=== PATIENT | female | born 1960 | race Caucasian/White ===

== ENCOUNTER 2017-02-15 12:28 | Emergency (ER) | payer OTHER ==
[2017-02-15] MEDS ORDERED: NS 0.9% 1000 ML* 1,000 ML IV SCH (13:45)
--- NOTE | 2017-02-15 15:10 | RAD ---
Indication: Leg pain and fever. 2 views of the lower leg demonstrates soft tissue swelling. No fracture is identified. No abnormal erosions are noted. Ankle mortise is intact. IMPRESSION: No fracture is noted. No abnormal erosions are noted.
[2017-02-15] MEDS ORDERED: Clindamycin 600 MG IVPREMIX(* 600 MG/50 ML SDV IV ONE (15:38)
[2017-02-15] MEDS ORDERED: Ondansetron INJ* 2 MG/ML VIAL IV ONE (15:38)
--- NOTE | 2017-02-15 16:18 | RAD ---
Indication: Left leg edema. Duplex Doppler sonography of the deep venous system of the left lower extremity deep venous system was performed. Bilaterally the common femoral veins appear patent and compressible. Left proximal greater saphenous vein, proximal deep femoral vein, femoral vein, popliteal vein, posterior tibial veins and peroneal veins appear patent and compressible. IMPRESSION: NO EVIDENCE OF DEEP VENOUS THROMBOSIS IS IDENTIFIED.
[2017-02-15 16:34] LABS: Hematocrit 37 % (35-47); Hemoglobin 12.3 g/dl (12.0-16.0); Mean Corpuscular HGB Conc 33 g/dl (31-36); Mean Corpuscular Hemoglobin 29 pg (27-31); Mean Corpuscular Volume 86 fL (80-97); Mean Platelet Volume 8 um3 (7.4-10.4); Red Cell Distribution Width 13 % (10.5-15)
--- NOTE | 2017-02-15 16:36 | ED ---
Skin Complaint - HPI Summary HPI Summary: 56F presents with cellulitis of left leg. She states that she has been seen at twice for this. She states she was initially placed on PCN but the area of cellulitis continued to grow and she says that pus came out of it. She went back to and they added clindamycin. She states the clindamycin made her nausea and have epigastric pain so she stopped taking it. She states the cellulitis area has not grown. She denies any nausea or epigastric pain currently. She states that she felt febrile yesterday but never took her temperature. She denies any chest pain or SOB. She denies any calf pain while walking. She denies any family history of blood clots. She is a nonsmoker and denies any recent travel. - History of Current Complaint Chief Complaint: EDExtremityLower Time Seen by Provider: 02/15/17 15:17 Stated Complaint: POSS cellulitis/FEVER Pain Intensity: 3 - Allergy/Home Medications Allergies/Adverse Reactions: Allergies Allergy/AdvReac Type Severity Reaction Status Date / Time No Known Allergies Allergy Verified 04/11/16 19:08 PMH/Surg Hx/FS Hx/Imm Hx Endocrine/Hematology History: Denies: Hx Diabetes Cardiovascular History: Denies: Hx Congestive Heart Failure, Hx Hypertension - Cancer History Hx Chemotherapy: No Hx Radiation Therapy: No - Surgical History Surgery Procedure, Year, and Place: TUBAL 1984. hysterectomy Infectious Disease History: No Infectious Disease History: Denies: Traveled Outside the [place] in Last 30 Days - Family History Known Family History: Positive: Other - NONCONTIRBUTORY - Social History Alcohol Use: None Substance Use Type: Reports: Prescribed Smoking Status (MU): Never Smoked Tobacco Review of Systems Negative: Fever Negative: Chest Pain Negative: Shortness Of Breath Positive: Other - cellulitis of left leg All Other Systems Reviewed And Are Negative: Yes Physical Exam Triage Information Reviewed: Yes Vital Signs On Initial Exam: Initial Vitals Temp Pulse Resp BP Pulse Ox 97.5 F 77 18 122/70 98 02/15/17 12:30 02/15/17 12:30 02/15/17 12:30 02/15/17 12:30 02/15/17 12:30 Vital Signs Reviewed: Yes Appearance: Positive: Well-Appearing Skin: Positive: Other - 6cm by 4cm area of cellulitis on left medina and 2 cm and 3 cm area of cellulitis near ankle on left leg Head/Face: Positive: Normal Head/Face Inspection Eyes: Positive: Normal, Conjunctiva Clear Respiratory/Lung Sounds: Positive: Clear to Auscultation, Breath Sounds Present Cardiovascular: Positive: Normal, RRR Musculoskeletal: Positive: Strength/ROM Intact - of left leg, Other - good pulses. Negative: Massimo Sign Left, Edema Left Diagnostics - Vital Signs Vital Signs Temp Pulse Resp BP Pulse Ox 02/15/17 14:46 97.6 F 67 18 123/79 97 02/15/17 12:30 97.5 F 77 18 122/70 98 - Laboratory Result Diagrams: 02/15/17 16:17 02/15/17 16:17 Lab Statement: Any lab studies that have been ordered have been reviewed, and results considered in the medical decision making process. - Radiology leg Xray Interpretation: No Acute Changes Radiology Interpretation Completed By: Radiologist - Ultrasound No standard instances Ultrasound Interpretation: No Acute Changes - no DVT Ultrasound Interpretation Completed By: Radiologist Course/Dx - Course Course Of Treatment: 56F presents with cellulitis for a week. has been on PCN and clindamycin was added two days ago because was not getting better but states due to GI symptoms was unable to take more than two doses. states the area has not gotten any bigger but she thought she felt febrile. today is afebrile. got u/s no DVT. areas of cellulitis on left medina. labs okay: wbc and lactic normal. discussed with dr knott and due to not taking antibiotics did not really fail outpatient therapy yet. will change antibiotic to bactrim. told to return if develops fever or redness spread. patient understands and agrees with plan - Differential Diagnoses - Skin Complaint Differential Diagnoses: Abscess, Cellulitis, Systemic Illness - Diagnoses Provider Diagnoses: Cellulitis of left leg Discharge - Discharge Plan Condition: Good Disposition: HOME Prescriptions: Ondansetron ODT TAB* [Zofran 4 MG Odt TAB*] 4 mg PO Q6H PRN #15 tab.odt PRN Reason: Nausea Sulfamethox/Trimethoprim DS* [Bactrim DS 800/160 TAB*] 1 tab PO BID #20 tab Patient Education Materials: Cellulitis (ED) Referrals: Camryn Lala NP [Primary Care Provider] - Additional Instructions: Continue penicillin as prescribed Take bactrim twice a day for 10 days, take first dose tonight Take zofran every 6 hours for nausea Follow up with primary within 5 days Return to ED if redness spreads, fever, or any new or worsening symptoms Images - Images Full Body (No Head): 1 - cellulitis 6 by 4cm 2 - 2 by 2cm cellulitis
[2017-02-15 16:49] LABS: Albumin 3.9 g/dL (3.2-5.2); C Reactive Protein 16.58 mg/L (< 5.00); Calcium 9.3 mg/dL (8.6-10.3); EGFR African American 93.4 (>60); EGFR Non-African American 72.6 (>60); Globulin 3.9 g/dL (2-4); Potassium 3.8 mmol/L (3.5-5.0); Total Bilirubin 0.2 mg/dL (0.2-1.0); Total Protein 7.8 g/dL (6.4-8.9)
[2017-02-15 20:34] VITALS: BP 113/69
== END 2017-02-15 20:31 | disposition home or self-care (01) ==
LOC: ED 12:28
DX: L03.116 Cellulitis of left lower limb (principal)
CPT/HCPCS: 36415; 80053; 83605; 85025; 85610; 85730; 86140; 87040; 96374; 99283; J2405

== ENCOUNTER 2019-08-07 17:45 | Emergency (ER) | payer OTHER ==
--- OUTSIDE RECORDS SUMMARY | 2019-08-07 17:53 | XMS REPORT | Continuity of Care Document ---
:1960 External Reference #:[id number] Author Name Estephania Marie NP Address [address] [place] [address] Care Team Providers Name Role Phone [facility] - Care Team Information Banquet Director [phone] Gastroenterology Darrion Gambino MD - Family Medicine Care Team Information Banquet Director [phone] Problems Description No Information Available Social History Type Date Description Comments Sex Unknown Tobacco Use Start: Unknown Nonsmoker ETOH Use Denies alcohol use Allergies, Adverse Reactions, Alerts Active Allergies Reaction Severity Comments Date NKDA 09/08/2015 Nkma 05/02/1998 Medications Active Medications SIG Qnty Indications Ordering Date Provider Physical Therapy please diagnose M75.101 Estephania Reese 08/07/2019 and treat for NAKIA Marie right shoulder pain Hydrocodone take 1 by mouth 20tabs M75.101 Estephania Reese 08/07/2019 Bitartrate/Acetaminophe every 8 hours as NAKIA Marie n needed for 5-300mg Tablets severe pain Phendimetrazine 1po twice a day 60tabs E66.09 Camryn Lala, 09/08/2015 Tartrate daily mdd 2 [employer] 35mg Tablets Lexapro 1 by mouth every 90tabs F41.1 Estephania Reese 06/16/2012 10mg Tablets day NAKIA Marie F32.0 Womens One Daily Tablets 1 po qd Unknown History Medications Fluconazole take 1 tab today, 4tabs FENG Machado 02/09/2019 - 150mg Tablets may repeat in 5 08/07/2019 to 7 days Medications Administered in Office Medication SIG Qnty Indications Ordering Provider Date TB Intradermal Test FENG Machado 10/24/2017 Injection TB Intradermal Test FENG Machado 12/12/2015 Injection TB Intradermal Test Carly Hendricks M.D. 12/01/2009 Injection TB Intradermal Test Kathy LopezDylon-C 03/09/2007 Injection TB Intradermal Test FENG Machado 12/21/2000 Injection TB Intradermal Test Kathy LopezDylon-Jania 03/12/1999 Injection Immunizations CPT Code Status Date Vaccine Lot # [id number] Given 10/27/2006 DO Not Use Split Influenza Virus Vaccine [id number] Given 09/10/2003 DO Not Use Split Influenza Virus Vaccine 22213 Given 09/10/2003 DO Not Use Split Influenza Virus Vaccine 16340 Given 09/17/2002 DO Not Use Split Influenza Virus Vaccine 80060 Given 10/31/2001 Influenza Immunization 01790 Given 11/11/2000 Influenza Immunization Vital Signs Date Vital Result Comment 08/07/2019 9:18am BP Systolic 120 mmHg BP Diastolic 80 mmHg Heart Rate 72 /min Body Temperature 97.9 F Respiratory Rate 12 /min Height 61.5 inches 5'1.50" measured Weight 239.00 lb BMI (Body Mass Index) 44.4 kg/m2 02/09/2019 9:26am BP Systolic 124 mmHg BP Diastolic 78 mmHg Heart Rate 72 /min Body Temperature 97.7 F Respiratory Rate 16 /min Height 62 inches 5'2" Weight 240.00 lb BMI (Body Mass Index) 43.9 kg/m2 Results Test Date Facility Test Result H/L Range Note Laboratory test 02/09/2019 [facility] [place] Cytology SEE RESULT 1 finding Thinprep BELOW w/rfx(cmc) Comprehensive 02/09/2019 [facility]) Sodium 144 mEq/L 134-149 Metabolic Prof Potassium 4.4 mEq/L 3.6-5.5 Chloride 103 mEq/L 94-112 Carbon Dioxide 27 mEq/L 21-32 Glucose 85 mg/dL 70-105 BUN 7 mg/dL 6-26 Creatinine 0.7 mg/dL 0.6-1.4 BUN/Creat Ratio 10.0 CALC 8.0-36.0 Calcium 8.9 mg/dL 8.6-10.2 Total Protein 7.1 g/dL 6.4-8.3 Albumin 4.1 g/dL 3.8-5.5 Globulin 3.0 g/dL 2.0-4.8 A/G Ratio 1.4 CALC 0.6-2.3 Alk. Phosphatase 83 U/L 30-110 Alt (SGPT) 15 U/L 7-35 Ast (Sgot) 15 U/L 5-34 Total Bilirubin 0.2 mg/dL 0.2-1.3 GFR Non- >60 ml/min/1.73m^ >=60 GFR >60 ml/min/1.73m^ >=60 Laboratory test finding 02/09/2019 [facility] TSH 2.95 mIU/L 0.50-6.00 Free T3 2.71 pg/mL 2.00-4.90 Free T4 1.10 ng/dL 0.75-1.54 Lipid Profile 02/09/2019 [facility]) Cholesterol 232 mg/dL High 120-200 Triglycerides 116 mg/dL 30-200 HDL Cholesterol 62 mg/dL 30-85 LDL (Calculated) 147 CALC High 0-129 VLDL Cholesterol 23 mg/dL 0-50 HDL Risk Factor 3.7 CALC 0.0-4.4 CBC Electronic Fma 02/09/2019 [facility]) WBC 6.3 x10^3/UL 4.0- 10.0 RBC 4.24 x10^6/UL 3.93-6.00 HGB 12.3 g/dL 12.0-17.0 HCT 38 % 35-50 MCV 88.7 fL 80.0-95.0 MCH 29.0 pg 25.6-32.2 MCHC 32.7 g/dL 32.2-36.0 RDW-CV 12.2 % 11.6-14.4 PLT 335 x10^3/UL 163-400 MPV 9.8 fL 9.4-12.4 Win# 3.36 x10^3/UL 1.56-6.13 Lymph# 2.20 x10^3/UL 1.18-3.74 [place]# 0.46 x10^3/UL 0.24-0.82 Eos # 0.2 x10^3/UL 0.0-0.5 Baso # 0.04 x10^3/UL 0.01-0.08 Win% 53.7 % 34.0-70.0 Lymph % 35.2 % 20.0-52.0 [place]% 7.4 % 5.0-12.0 Eos% 2.9 % 0.7-7.0 Baso% 0.6 % 0.1-1.2 Laboratory test 02/09/2019 [facility]) Serum Iron 70 g/dL 60- 150 finding 1 SEE RESULT BELOW Name: ISABELL STARR : [address]: Camryn Lala NP Acct: [id number] Unit: [id number] AGE: 58 Location: [facility] Re02/09/19 SEX: F Status: REG REF SPEC: [id number] NILSON: 02/09/19-[address] [facility] [address]: Camryn Lala NP REQ: [id number] RECD: 02/09/19 STATUS: SOUT _ ORDERED: TP IMAGE ANALYS, HPV/Thin Prep, HPV 16/18 GENE COMMENTS: [id number] Negative for Intraepithelial lesion or Malignancy Date Time Test Result Flag (u) Normal Range 02/09/19 1041 @ HPV RNA RFLX GE Negative Negative @ @ The high-risk HPV types detected by the assay include: 16, @ 18, 31, 33, 35, 39, 45, 51, 52, 56, 58, 59, 66, and 68. A. Ectocervical/Endocervical Specimen Adequacy: Satisfactory of evaluation Transformation zone component identified Patient Information: HPV: High risk HPV RNA testing regardless of pap results. HPV 16/18 Genotype Reflex Actual Specimen Date: 02/09/19 LMP If Unknown: Last Menstrual Period Not Given. ?: N Hysterectomy?: N Signed by and Reported on: JOHANN Cagle (ASCP) [id number] This Pap test was evaluated with the assistance of the [employer] HealthcarePrep Test Imaging System. Due to cytologic findings at the director pediatric microscope, comprehensive manual rescreening by a Electronic Scale Assembler And Tester may be required. The Pap Smear is a screening test designed to aid in the detection of premalignant and malignant conditions of the uterine cervix. It is not a diagnostic procedure and should not be used as the sole means of detecting cervical cancer. Both false- positive and false- negative reports do occur. Depending on your risk status, a Pap smear should be obtained and evaluated every 1-3 years. END OF REPORT DEPARTMENT OF PATHOLOGY, [address] [place] [address] Vijay Yang M.D. Director [facility] # [id number] Procedures Date Code Description Status 11/20/2014 [id number] Mammogram Completed 06/15/2013 [id number] Mammogram Completed 09/09/2011 [id number] Mammogram Completed 06/03/2010 [id number] Mammogram Completed 11/25/2008 [id number] Mammogram Completed 07/06/2007 [id number] Mammogram Completed 05/24/2006 [id number] Mammogram Completed Medical Devices Description No Information Available Encounters Type Date Location Provider Dx Diagnosis Office Visit 02/09/2019 Main Office FENG Machado Z01.419 Encntr for practice billing associate exam 9:30a (general) (routine) w/o abn findings Z12.31 Encntr screen mammogram for malignant neoplasm of breast D50.8 Other iron deficiency anemias Assessments Date Code Description Provider 08/07/2019 M75.101 Unspecified rotator cuff tear or rupture of Estephania Marie NP right shoulder, not specified as traumatic 08/07/2019 F41.1 Generalized anxiety disorder Estephania Marie, NAKIA 08/07/2019 K62.5 Hemorrhage of anus and rectum Estephania Marie NP 08/07/2019 E66.9 Obesity, unspecified Estephania Marie NP 02/09/2019 Z01.419 Encounter for gynecological examination FENG Machado (general) (routine) 02/09/2019 Z12.31 Encounter for screening mammogram for FENG Machado malignant neoplasm of 02/09/2019 D50.8 Other iron deficiency anemias FENG Machado Plan of Treatment 08/07/2019 - Estephania Marie, NKAIAM75.101 Unspecified rotator cuff tear or rupture of right shoulder, not specified as traumaticNew Medication:Physical Therapy - please diagnose and treat for right shoulder painHydrocodone Bitartrate/Acetaminophen 5-300 mg - take 1 by mouth every 8 hours as needed for severe painComments:If you do not have improvement in your shoulder with time and physical therapy, I can refer you to an orthopedist at any time.F41.1 Generalized anxiety ozfkjzkgY33.5 Hemorrhage of anus and rectumComments:Your bleeding needs follow-up. If you are unable to get adequate diagnosis from your current specialists, please let me know and I can refer you to GI.E66.9 Obesity , unspecifiedComments:Your current Body Mass Index puts you in the category of obesity, which is a risk factor for many diseases, including diabetes, different cancers, heart disease, and others. It can feel overwhelming tothink that EVERYTHING has to change in order to improve you health, so take comfort in the fact thatsmall changes can have big benefit. Even losing just 5% of your body weight can change your blood pressure, cholesterol, and risk factors for disease. Without losing weight, adding exercise can improvemood, insulin sensitivity, and raise your "good cholesterol."Set goals you can easily achieve and build on that. Try for just 1 or 2 times per week when you can do some sort of exercise that raises your heart rate for at least 30 minutes. Cut down (or cut out) sweet drinks: soda, sweetened coffee, andfruit juice all have more calories than most people think. Add fruits and vegetables to your diet.Itis hard to work against longstanding habits, especially when work and family take so much energy. But putting in effort to exercise and pay attention to your diet can have a profoundly positive impact on the length and quality of your life!AllComments:1. Patient has been queried about patient's goals/preferences and functional/lifestyle goals at relevant visits. If relevant, describe: Has been discussed, noted above2. Treatment goals as explainedto the patient: see above3. Are there barriers to meeting treatment goals? Yes If Yes, please describe: Barriers include possible insurance limits, disease process, and difficulty with lifestyle changes4. Self-Management goals as described to the patient: Yes, see above As always, we strongly encourage a healthy diet and making physical activity a part of your every day life. If you have questions about how or where to start, please contact the office. Functional Status Description No Information Available Mental Status Description No Information Available Referrals Description No Information Available
[2019-08-07 18:02] VITALS: BP 125/71
--- NOTE | 2019-08-07 19:28 | UC ---
Shoulder Pain HPI - HPI Summary HPI Summary: PATIENT WORKS AT THE [employer] AT [employer]. WAS SHAKING OUT THE EMPTY MAILBAG YESTERDAY WHEN SHE HAD SUDDEN ONSET OF RIGHT SHOULDER PAIN AND DECREASED RANGE OF MOTION. SA[facility] BUT DID NOT HAVE AN X-RAY. IS HERE REQUESTING AN X-RAY. - History of Current Complaint Chief Complaint: UCUpperExtremity Stated Complaint: RT SHOULDER PAIN Time Seen by Provider: 08/07/19 18:36 Hx Obtained From: Patient Onset/Duration: Sudden Onset, Lasting Days - 1 DAY, Still Present Timing: Constant Severity Initially: Severe Severity Currently: Severe Pain Intensity: 10 Pain Scale Used: 0-10 Numeric Character: Sharp Aggravating Factor(s): Movement Alleviating Factor(s): Nothing Associated Signs And Symptoms: Positive: Negative Related History: Dominant Hand Right - Allergies/Home Medications Allergies/Adverse Reactions: Allergies Allergy/AdvReac Type Severity Reaction Status Date / Time No Known Allergies Allergy Verified 08/07/19 18:02 PMH/Surg Hx/FS Hx/Imm Hx Previously Healthy: Yes - Surgical History Surgical History: Yes Surgery Procedure, Year, and Place: TUBAL 1984. hysterectomy - Family History Known Family History: Positive: Non-Contributory - Social History Alcohol Use: None Substance Use Type: None Smoking Status (MU): Never Smoked Tobacco Review of Systems All Other Systems Reviewed And Are Negative: Yes Constitutional: Positive: Negative Skin: Positive: Negative Respiratory: Positive: Negative Cardiovascular: Positive: Negative Gastrointestinal: Positive: Negative Musculoskeletal: Positive: Arthralgia, Decreased ROM Physical Exam Triage Information Reviewed: Yes Appearance: Well-Appearing, No Pain Distress, Well-Nourished Vital Signs: Initial Vital Signs Temp 97.9 F 08/07/19 17:57 Pulse 80 08/07/19 17:57 Resp 18 08/07/19 17:57 BP 125/71 08/07/19 17:57 Pulse Ox 97 08/07/19 17:57 Vital Signs Reviewed: Yes Eyes: Positive: Conjunctiva Clear ENT: Positive: Hearing grossly normal Neck: Positive: Supple Respiratory: Positive: No respiratory distress, No accessory muscle use Cardiovascular: Positive: Pulses Normal Abdomen Description: Positive: Soft Musculoskeletal: Positive: No Edema, ROM Limited @ - RIGHT SHOULDER, Other: - TTP DIFFUSELY RIGHT SHOULDER Neurological: Positive: Alert Psychological: Positive: Age Appropriate Behavior Skin: Negative: Rashes Diagnostics - Radiology RIGHT SHOULDER XRAYS Radiology Interpretation Completed By: ED Physician Summary of Radiographic Findings: CALCIFIC TENDONITIS Shoulder Course/Dx - Course Course Of Treatment: CALCIFIC TENDINITIS ON MY INITIAL INTERPRETATION OF THE X-RAYS. OFFICIAL RADIOLOGY READ IS PENDING. SLING PROVIDED. NAPROXEN FOR PAIN. HYDROCODONE FOR BREAKTHROUGH. FOLLOW-UP WITH ORTHOPEDICS. - Differential Dx/Diagnosis Provider Diagnosis: Calcific tendinitis of right shoulder Discharge ED - Sign-Out/Discharge Documenting (check all that apply): Patient Departure All imaging exams completed and their final reports reviewed: No - Discharge Plan Condition: Stable Disposition: HOME Prescriptions: HYDROcodone/ACETAMIN 5-325 MG* [[place] 5-325 TAB*] 1 tab PO Q6H PRN #20 tab MDD 4 PRN Reason: Pain Naproxen [Naproxen 500 mg tab] 500 mg PO BID PRN #30 tablet PRN Reason: Pain Patient Education Materials: Calcific Tendinitis (ED) Forms: *Work Release Referrals: Darrion Gambino MD [Primary Care Provider] - If Needed Vivian Alexandre MD [Medical Doctor] - 2 Days Additional Instructions: X-RAY TODAY SHOWS CALCIFIC TENDINITIS ON MY INITIAL INTERPRETATION. WE WILL CALL YOU TOMORROW IF THE RADIOLOGY READ DIFFERS. WEAR THE SLING NEEDED FOR COMFORT. TAKE NAPROXEN TWICE DAILY FOR PAIN. HYDROCODONE FOR BREAKTHROUGH. CALL ORTHOPEDICS FIRST THING IN THE MORNING TO SCHEDULE A FOLLOW-UP APPOINTMENT FOR THIS WEEK. - Billing Disposition and Condition Condition: STABLE Disposition: Home
--- NOTE | 2019-08-08 07:51 | UC ---
- Progress Note Progress Note: wet read correct Course/Dx - Diagnoses Provider Diagnoses: Calcific tendinitis of right shoulder Discharge ED - Sign-Out/Discharge Documenting (check all that apply): Post-Discharge Follow Up All imaging exams completed and their final reports reviewed: Yes - Discharge Plan Condition: Stable Disposition: HOME Prescriptions: HYDROcodone/ACETAMIN 5-325 MG* [[place] 5-325 TAB*] 1 tab PO Q6H PRN #20 tab MDD 4 PRN Reason: Pain Naproxen [Naproxen 500 mg tab] 500 mg PO BID PRN #30 tablet PRN Reason: Pain Patient Education Materials: Calcific Tendinitis (ED) Forms: *Work Release Referrals: Darrion Gambino MD [Primary Care Provider] - If Needed Vivian Alexandre MD [Medical Doctor] - 2 Days Additional Instructions: X-RAY TODAY SHOWS CALCIFIC TENDINITIS ON MY INITIAL INTERPRETATION. WE WILL CALL YOU TOMORROW IF THE RADIOLOGY READ DIFFERS. WEAR THE SLING NEEDED FOR COMFORT. TAKE NAPROXEN TWICE DAILY FOR PAIN. HYDROCODONE FOR BREAKTHROUGH. CALL ORTHOPEDICS FIRST THING IN THE MORNING TO SCHEDULE A FOLLOW-UP APPOINTMENT FOR THIS WEEK. - Billing Disposition and Condition Condition: STABLE Disposition: Home
== END 2019-08-07 19:23 | disposition home or self-care (01) ==
LOC: UCEAST 17:45
DX: M75.31 Calcific tendinitis of right shoulder (principal)
CPT/HCPCS: 99213; G0463